=== PATIENT | male | born 1970 | race Caucasian/White ===

== ENCOUNTER 2020-07-10 01:27 | Emergency (ER) | payer OTHER, SELFPAY ==
--- NOTE | 2020-07-10 01:39 | ED.WOUNDLAC ---
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 He states that he felt a little while later and it was wet, looked at it further and found that there was blood all over his bed and foot. He denies prior bleeding problems and has had no recent joint swelling, easy bruising, gum bleeding, nor has he had any recent illness such as cough or cold symptoms, sore throat, fever or difficulty breathing. Onset (ago): minute(s) (20) Extremity Location: Left: ankle Place: home Context: accidental Associated symptoms: none Treatments prior to arrival: bandage Related Data Home Medications Medication Instructions Recorded Confirmed lisinopril 5 mg PO DAILY 07/10/20 07/10/20 metformin 500 mg PO DAILY 07/10/20 07/10/20 multivitamin,dr-zhwu-[id number] 1 tablet PO DAILY 07/10/20 07/10/20 [Complete Multivitamin] omega-3 fatty acids [Fish Oil] 1,000 mg PO DAILY 07/10/20 07/10/20 pravastatin 10 mg PO DAILY 07/10/20 07/10/20 Allergies Allergy/AdvReac Type Severity Reaction Status Date / Time No Known Allergies Allergy Verified 07/10/20 02:25 Review of Systems Constitutional: Constitutional: Denies chills and Denies fever(s) ENT: Denies nasal congestion and Denies sore throat Cardiovascular: Cardiovascular: Denies chest pain and Denies radiating jaw, neck or arm pain Respiratory: Respiratory: Denies cough and Denies dyspnea Gastrointestinal: Gastrointestinal: Denies nausea and Denies vomiting Integumentary/Breasts: Skin/Breast: Denies pruritus, Denies erythema and Denies rash Neurologic: Denies vertigo, Denies dizziness and Denies syncope Hematologic/Lymphatic: Hematologic/Lymphatic: Denies easy bleeding and Denies easy bruising Allergic/Immunologic: Allergic/Immunologic: Denies lip swelling, Denies throat swelling and Denies tongue swelling [facility] Past Medical History Medical History (Updated 07/10/20 @ 01:47 by Gagan Simon MD) Type 2 diabetes mellitus Social History Social History (Updated 07/10/20 @ 01:44 by Gagan Simon MD) Smoking status: Never smoker Substance use: never Living arrangements: with family Exam Const: General: no acute distress and alert Orientation/consciousness: patient oriented x3 Resp: Effort & Inspection: normal respiratory effort and not labored Auscultation: clear to auscultation bilaterally, no rales, no rhonchi and no wheezes Cardio: Rate: regular rate Rhythm: regular rhythm Heart sounds: no murmurs Skin: General skin exam: normal color, no jaundice and no pallor Rashes: no rashes Other: 2 mm erosion over the lateral malleolus left ankle. There is no current bleeding. There is no swelling, erythema, tenderness or abrasion. Neuro: General: patient oriented x3, moves all extremities, no focal motor deficits and CN's II-XI intact bilaterally Speech: normal speech Extrem: General: normal to inspection and no clubbing, cyanosis or edema Psych: Appearance: grossly normal and well kempt Mental Status: mental status grossly normal Affect: normal affect Attitude: cooperative Thought content: Yes Normal thought content present Course Vital Signs Vital signs: Vital Signs Temperature 36.4 C 07/10/20 01:47 Pulse Rate 71 07/10/20 01:47 Respiratory Rate 18 07/10/20 01:47 Blood Pressure 115/82 07/10/20 01:47 Pulse Oximetry 97 07/10/20 01:47 Temperature 36.4 C 07/10/20 02:00 Pulse Rate 71 07/10/20 02:00 Respiratory Rate 20 07/10/20 02:00 Blood Pressure 115/82 07/10/20 02:00 Pulse Oximetry 97 07/10/20 02:00 MDM - Wound/Laceration Lab Data Resul
[2020-07-10 01:47] VITALS: BP 115/82; PULSE 71; RESP 18; TEMP 36.4; O2SAT 97
[2020-07-10 02:00] VITALS: BP 115/82; PULSE 71; RESP 20; TEMP 36.4; O2SAT 97
[2020-07-10 02:28] LABS: Basophils Absolute Auto 0.05 K/mm3 (0.00-0.10); Basophils Percent Auto 0.8 % (0.0-1.0); Eosinophils Absolute Auto 0.16 K/mm3 (0.02-0.50); Eosinophils Percent Auto 2.7 % (1.0-6.0); Hematocrit 41.1 % (40.0-54.0); Hemoglobin 13.3 g/dL (14.0-18.0); Immature Granulocyte Absolute 0.07 K/mm3 (0.00-0.00); Immature Granulocyte Percent A 1.2 % (0.0-0.0); Mean Corpuscular HGB Conc 32.4 g/dL (32.0-36.0); Mean Corpuscular Hemoglobin 27.9 pg (27.0-31.0); Mean Corpuscular Volume 86.2 fL (78.0-102.0); Mean Platelet Volume 8.9 fl (8.7-11.0); Monocytes Absolute Auto 0.55 K/mm3 (0.10-0.90); Monocytes Percent Auto 9.2 % (2.0-11.0); Neutrophils Absolute Auto 3.7 K/mm3 (1.7-7.2); Neutrophils Percent Auto 61.1 % (50.0-70.0); Platelet Count Result 236 K/mm3 (150-420); Red Blood Count 4.77 M/mm3 (4.70-6.10); Red Cell Distribution Width 13.5 % (11.6-14.4)
[2020-07-10 02:35] LABS: Partial Thromboplastin Time 29.2 SEC (23.90-30.70)
[2020-07-10 02:39] LABS: Alanine Aminotransferase 39 U/L (16-63); Albumin Level 3.8 g/dL (3.4-5.0); Alkaline Phosphatase 68 U/L (46-116); Anion Gap 7 mmol/L (8-16); Aspartate Amino Transferase 21 U/L (15-37); Bilirubin,Total 0.6 mg/dL (0.00-1.00); Blood Urea Nitrogen 14 mg/dL (7-18); Calcium 9.1 mg/dL (8.5-10.1); Carbon Dioxide 27 mmol/L (21-32); Chloride 104 mmol/L (98-108); Estimated CRCL calculation 87 ml/min; Estimated Glomerular Filt Rate > 60; Glucose 139 mg/dL (70-99); Osmolality Calculated 288 mOsm/kg (285-295); Potassium 3.6 mmol/L (3.5-5.1); Sodium 138 mmol/L (136-145); Total Protein 6.7 g/dL (6.4-8.2)
[2020-07-10 02:46] VITALS: BP 122/76; PULSE 75; RESP 18; O2SAT 99
== END 2020-07-10 02:52 | disposition home or self-care (01) ==
PROVIDERS: Emergency Provider Emergency Medicine
DX: I83.892 Varicose veins of left lower extremity with other complications (principal)
CPT/HCPCS: 36415; 80053; 85025; 85610; 85730; 99282; 99283

== ENCOUNTER 2021-09-22 19:37 | Emergency (ER) | payer OTHER, SELFPAY ==
--- NOTE | ~2021-09-22 | CT_ITS ---
EXAMINATION: CT pelvis wo con DATE: 09/22/2021 21:07 INDICATION: Right hip pain after fall TECHNIQUE: Computed tomography (CT) of the pelvis was performed without intravenous contrast. The dos e-length product was 837.44 mGy-cm. Automated exposure control and iterative reconstruction technique were employed. COMPARISON: None FINDINGS: There is mild osteoarthritis of the hips. No fracture, subluxation or dislocation. Pelvic r ings are intact. No significant soft tissue abnormality. No intra-abdominal abnormalities. IMPRESSION: 1. No acute fracture. Reviewed, dictated and finalized at location A. [employer] IMPRESSION: 1. No acute fracture.
--- NOTE | ~2021-09-22 | CT_ITS ---
EXAMINATION: CT lumbar spine wo con DATE: 09/22/2021 21:07 INDICATION: Low back pain after fall TECHNIQUE: Computed tomography (CT) of the lumbar spine was performed without intravenous contrast. T he dose-length product was 837.44 mGy-cm. Automated exposure control and iterative reconstruction mode hnique were employed. COMPARISON: None FINDINGS: Normal lumbar alignment. There is degenerative disc disease at T11-12 and T12-L1. There is a nondisplaced right transverse process fracture at L1 and L2. No vertebral fractures. Sacrum is unre markable. No significant paraspinal soft tissue abnormality. There is mild atherosclerosis of the aor ta.. IMPRESSION: 1. Nondisplaced right transverse process fractures at L1 and L2. 2: Mild thoracic and upper lumbar spondylosis. Reviewed, dictated and finalized at location A. [employer]
[2021-09-22 19:48] VITALS: BP 122/92; PULSE 81; RESP 20; TEMP 36.8; O2SAT 100
--- NOTE | 2021-09-22 20:24 | ED.FALL ---
HPI - Fall General Chief Complaint: Fall Stated Complaint: fell down stairs 2 days ago, back pain Time Seen by Provider: 09/22/21 19:39 Source: patient and RN notes reviewed Mode of arrival: ambulatory Limitations: no limitations History of Present Illness complaint: fall (pt fell and hit the right buttock x 2 days. now right hip pain with right thigh radiation) Onset (ago): day(s) (2) Fall from: standing Fall witnessed: no Place fall occurred: home Loss of consciousness: none Prolonged down time: no Symptoms prior to fall: none Context: tripped/slipped Location of injury: back and buttocks Severity: moderate Severity scale (1-10): 7 Quality: dull, aching and tingling Associated symptoms (after fall): other (back and right LE pain) Related Data Home Medications Medication Instructions Recorded Confirmed lisinopril 5 mg PO DAILY 07/10/20 09/22/21 metformin 500 mg PO DAILY 07/10/20 09/22/21 multivitamin,el-upnc-[id number] 1 tablet PO DAILY 07/10/20 09/22/21 [Complete Multivitamin] pravastatin 10 mg PO DAILY 07/10/20 09/22/21 dulaglutide [Trulicity] 1.5 mg SUBCUT WEEKLY 09/22/21 09/22/21 empagliflozin [Jardiance] 25 mg PO DAILY 09/22/21 09/22/21 famotidine 40 mg PO DAILY 09/22/21 09/22/21 Allergies Allergy/AdvReac Type Severity Reaction Status Date / Time No Known Allergies Allergy Verified 09/22/21 20:16 Review of Systems Review of Systems: All systems reviewed & are unremarkable except as noted in HPI and below PMFSH Past Medical History Medical History Sciatica Type 2 diabetes mellitus Social History Social History Smoking status: Never smoker Substance use: never Exam Const: General: no acute distress and alert Nutritional Appearance: well nourished Orientation/consciousness: patient oriented x3 Limitations: no limitations HENMT: Head: normal to inspection Ears: external ears normal, TM's normal bilaterally and EAC's normal General nose exam: Normal external nose present and Normal nares present Face and sinus: normal facial exam and sinuses nontender Mouth: Yes lip normal and Yes moist mucous membranes Eyes: Conjunctivae: conjunctivae normal Pupils: Equal, round and reactive pupils present EOM: EOMs intact bilaterally Neck: Neck: normal visual inspection Chest: Chest palpation & inspection: normal inspection of the chest Resp: Effort & Inspection: normal respiratory effort Auscultation: clear to auscultation bilaterally Cardio: Rate: regular rate Rhythm: regular rhythm GI: GI Palp: Yes Soft to palpation and No Tenderness to palpation present (GI) : General: Yes bladder normal to palpation and Yes no CVA tenderness Male General Exam: Yes normal external exam Back/Spine/Pelvis: Back: no CVA tenderness Other: minimal right buttock tenderness on deep palpation. Skin: General skin exam: normal color Neuro: General: patient oriented x3, no focal motor deficits and CN's II-XI intact bilaterally Speech: normal speech Extrem: General: normal to inspection and no pedal edema Other: no acute right LE abnormality. Psych: Appearance: grossly normal and well kempt Mental Status: mental status grossly normal Affect: normal affect Attitude: cooperative Thought content: Yes Normal thought content present Course Course Emergency Course: Pt was stable in the ED. Less pain-ful. Reevaluation(s) Reevaluation #1: VSS. Date: 09/22/21 Time: 20:37 MDM - Fall Differential Diagnosis Differential diagnosis: Likely other (right hip pain, back pain, sciatica) Medical Records Attestation: I reviewed the patient's medical records. Imaging Data Radiologist's impression: See the report. Critical Care Time Critical Care Time Critical Care Time: No Total Critical Care Time: 0 Discharge Plan Discharge Clinical Impression: Sciatica Patient Disposition: Home, Self-Car
[2021-09-22] MEDS: KETOROLAC (*BKC) 60 MG/2 ML VIAL IM (20:46)
--- NOTE | 2021-09-22 21:47 | ECG_ITS ---
Measurements Intervals [place] Rate: 73 P: 40 CO: 155 QRS: 51 QRSD: 104 T: 8 QT: 349 QTc: 387 Interpretive Statements SINUS RHYTHM NONSPECIFIC T-WAVE ABNORMALITY NO PREVIOUS ECG AVAILABLE FOR COMPARISON Electronically Signed On 09-24-2021 12:13:51 [employer] by Harry Kramer M.D.
--- NOTE | 2021-09-22 22:14 | PC.NURSE ---
contacted [facility] to verify that the pt with be an er to er transfer.
[2021-09-22 22:17] LABS: Basophils Absolute Auto 0.05 K/mm3 (0.00-0.10); Basophils Percent Auto 0.8 % (0.0-1.0); Eosinophils Absolute Auto 0.16 K/mm3 (0.02-0.50); Eosinophils Percent Auto 2.4 % (1.0-6.0); Hematocrit 46.1 % (40.0-54.0); Hemoglobin 14.7 g/dL (14.0-18.0); Immature Granulocyte Absolute 0.02 K/mm3 (0.00-0.00); Immature Granulocyte Percent A 0.3 % (0.0-0.0); Lymphocytes Absolute Auto 1.46 K/mm3 (1.10-4.50); Lymphocytes Percent Auto 22.3 % (18.0-42.0); Mean Corpuscular HGB Conc 31.9 g/dL (32.0-36.0); Mean Corpuscular Hemoglobin 27.9 pg (27.0-31.0); Mean Corpuscular Volume 87.6 fL (78.0-102.0); Mean Platelet Volume 9.1 fl (8.7-11.0); Monocytes Absolute Auto 0.56 K/mm3 (0.10-0.90); Monocytes Percent Auto 8.6 % (2.0-11.0); Neutrophils Absolute Auto 4.3 K/mm3 (1.7-7.2); Neutrophils Percent Auto 65.6 % (50.0-70.0); Platelet Count Result 271 K/mm3 (150-420); Red Blood Count 5.26 M/mm3 (4.70-6.10); Red Cell Distribution Width 14.2 % (11.6-14.4); White Blood Count 6.5 K/mm3 (4.8-10.8)
[2021-09-22 22:31] LABS: Alanine Aminotransferase 36 U/L (16-63); Albumin Level 3.9 g/dL (3.4-5.0); Alkaline Phosphatase 87 U/L (46-116); Anion Gap 9 mmol/L (8-16); Aspartate Amino Transferase 16 U/L (15-37); Bilirubin,Total 0.4 mg/dL (0.00-1.00); Blood Urea Nitrogen 13 mg/dL (7-18); Calcium 9.1 mg/dL (8.5-10.1); Carbon Dioxide 30 mmol/L (21-32); Chloride 105 mmol/L (98-108); Estimated CRCL calculation 76 ml/min; Estimated Glomerular Filt Rate 55; Glucose 187 mg/dL (70-99); Osmolality Calculated 303 mOsm/kg (285-295); Potassium 4.2 mmol/L (3.5-5.1); Sodium 144 mmol/L (136-145); Total Protein 7.2 g/dL (6.4-8.2)
[2021-09-22 22:34] LABS: Lactic Acid Reflex 0.7 mmol/L (0.4-2.0)
[2021-09-22 22:35] LABS: SARS-CoV-2 Ag Negative (Negative)
[2021-09-22] MEDS: SODIUM CHLORIDE 0.9% IV 1,000 ML 150 ML IV CONT (22:43)
[2021-09-22 22:47] LABS: Add Urine Microscopic? YES; Appearance Urine Clear (Clear); Bilirubin Urine Negative (Negative); Blood Urine Negative (Negative); Color Urine Light Yellow (Yellow); Glucose Urine UA 3+ (Negative); Ketones Urine Trace (Negative); Leukocyte Esterase Ur Negative (Negative); Nitrate Urine Negative (Negative); Protein Urine Negative (Negative); Urobilinogen Urine 0.2 mg/dL (0.2-1.0)
[2021-09-22 22:53] LABS: Bacteria Urine None seen /hpf; RBC Urine None seen /hpf (0-2); Squamous Epithelial Cell Urine None seen /hpf (Few); WBC Urine None seen /hpf (0-3)
--- NOTE | 2021-09-22 22:59 | PC.NURSE ---
[facility] member that they listened to the doctor report and had no further questions at this time.
--- NOTE | 2021-09-22 23:05 | PC.NURSE ---
dru reyes [facility] for er to er transfer of pt from [facility] to [facility] er
[2021-09-22 23:28] VITALS: BP 126/79; PULSE 70; RESP 18; TEMP 37; O2SAT 100
--- NOTE | 2021-09-22 23:28 | PC.NURSE ---
pt transfer to [facility] ER with NS infusing at 150ml/hr in a 20g right AC IV.
== END 2021-09-22 23:40 | disposition short-term general hospital (02) ==
PROVIDERS: Emergency Provider Emergency Medicine; PCP Family Medicine
DX: M54.30 Sciatica, unspecified side (principal); S32.019A Unspecified fracture of first lumbar vertebra, initial encounter for closed fracture; S32.029A Unspecified fracture of second lumbar vertebra, initial encounter for closed fracture; W19.XXXA Unspecified fall, initial encounter; Z20.822 Contact with and (suspected) exposure to COVID-19
CPT/HCPCS: 36415; 72131; 72192; 80053; 81001; 83605; 85025; 87426; 93005; 96360; 96372; 99285; C9803; J1885; J7030